=== PATIENT | male | born 1970 | race Caucasian/White ===

== ENCOUNTER 2018-07-05 02:29 | Emergency (ER) | payer OTHER ==
[2018-07-05] MEDS ORDERED: KETOROLAC 30 MG/ML 1 ML VIAL IVP STA (02:37)
[2018-07-05 02:58] LABS: Basophils % (A) 0 %; Eosinophils # (A) 0.2 k/uL (0-0.7); Eosinophils % (A) 2 %; HCT 45.1 % (39.0-53.0); HGB 14.7 gm/dL (13.0-17.5); Lymphocytes # (A) 1.9 k/uL (1.0-4.8); Lymphocytes % (A) 20 %; MCH 28.8 pg (25.0-35.0); MCHC 32.6 g/dL (31.0-37.0); MCV 88.3 fL (80.0-100.0); Monocytes # (A) 0.5 k/uL (0-1.0); Monocytes % (A) 6 %; Neutrophils # (A) 6.6 k/uL (1.3-7.7); Neutrophils % (A) 70 %; Platelet Count 215 k/uL (150-450); RDW 14.3 % (11.5-15.5); WBC 9.4 k/uL (3.8-10.6)
[2018-07-05 03:12] LABS: ALT 43 U/L (21-72); AST 41 U/L (17-59); Albumin 4.6 g/dL (3.5-5.0); Alkaline Phosphatase 108 U/L (38-126); Anion Gap 11 mmol/L; Blood Urea Nitrogen 16 mg/dL (9-20); Calcium 9.3 mg/dL (8.4-10.2); Carbon Dioxide 23 mmol/L (22-30); Chloride 109 mmol/L (98-107); Glucose 93 mg/dL (74-99); Lipase 989 U/L (23-300); Potassium 4.5 mmol/L (3.5-5.1); Sodium 143 mmol/L (137-145); Total Bilirubin 0.3 mg/dL (0.2-1.3); Total Protein 7.8 g/dL (6.3-8.2)
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
--- NOTE | 2018-07-05 04:05 | CT ---
EXAM: CT Abdomen and Pelvis With Intravenous Contrast CLINICAL HISTORY: LLQ pain TECHNIQUE: Axial computed tomography images of the abdomen and pelvis with intravenous contrast. CTDI is 6 mGy and DLP is 602.5 mGy-cm. This CT exam was performed using one or more of the following dose reduction techniques: automated exposure control, adjustment of the mA and/or kV according to patient size, and/or use of iterative reconstruction technique. COMPARISON: No relevant prior studies available. FINDINGS: Lung bases: Scattered ground-glass opacities are noted in the left upper lobe, inferior right upper lobe and right middle lobe. ABDOMEN: Liver: Unremarkable. No mass. Gallbladder and bile ducts: Unremarkable. No calcified stones. No ductal dilation. Pancreas: Unremarkable. No mass. No ductal dilation. Spleen: Unremarkable. No splenomegaly. Adrenals: Unremarkable. No mass. Kidneys and ureters: Unremarkable. No solid mass. No hydronephrosis. Stomach and bowel: No evidence for bowel obstruction. No mucosal thickening. PELVIS: Appendix: No findings to suggest acute appendicitis. Bladder: Unremarkable. No mass. Reproductive: Unremarkable as visualized. ABDOMEN and PELVIS: Intraperitoneal space: Unremarkable. No free air. No significant fluid collection. Bones/joints: Remote posterior right rib fractures are noted. Degenerative changes involving the visualized thoracic and lumbar spine with vacuum phenomenon at multiple levels noted. No dislocation. Soft tissues: Unremarkable. Vasculature: Unremarkable. No abdominal aortic aneurysm. Lymph nodes: Unremarkable. No enlarged lymph nodes. IMPRESSION: 1. Scattered ground-glass opacities are noted in the left upper lobe, inferior right upper lobe and right middle lobe. This may represent atelectasis. Subtle alveolitis is also a consideration. Please correlate clinically. 2. No evidence for bowel obstruction. No focal bowel mucosal abnormality, free intraperitoneal fluid or pneumoperitoneum. No significant diverticulosis.
[2018-07-05 08:56] VITALS: BP 150/102; PULSE 97; RESP 17; TEMP 98.1
== END 2018-07-05 09:23 | disposition home or self-care (01) ==
LOC: EC 02:29
DX: K85.90 Acute pancreatitis without necrosis or infection, unspecified (principal); F10.10 Alcohol abuse, uncomplicated; F17.200 Nicotine dependence, unspecified, uncomplicated; Z90.49 Acquired absence of other specified parts of digestive tract
CPT/HCPCS: 36415; 74177; 80053; 83690; 85025; 96374; 99284

== ENCOUNTER 2020-09-16 | Emergency (ER) | payer OTHER ==
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
== END 2020-09-16 18:06 | disposition home or self-care (01) ==
CPT/HCPCS: 82075; 99284

== ENCOUNTER 2021-03-10 10:18 | Day surgery (SDC) | payer OTHER ==
[2021-03-08 14:05] VITALS: BMI 22.6
[~2021-03-10 10:18] MED LIST: LACTATED RINGERS 1,000 ML IV SCH; LIDOCAINE 1% (10MG/ML) FOR IV START INTRADERMA PRN
[2021-03-10 10:45] VITALS: RESP 16; TEMP 98.2
[2021-03-10] MEDS ORDERED: PROPOFOL 10 MG/ML 20 ML VIAL IV ONE (11:47)
--- NOTE | 2021-03-10 12:06 | P.PCN ---
Date of Procedure: 03/10/21 Procedure(s) Performed: BRIEF HISTORY: Patient is a 50-year-old pleasant white male scheduled for an elective colonoscopy as a part of screening for colorectal neoplasia. PROCEDURE PERFORMED: Colonoscopy with biopsy. PREOPERATIVE DIAGNOSIS: Screening for colon cancer. IV sedation per Anesthesia. PROCEDURE: After informed consent was obtained, the patient, was brought into the endoscopy unit. IV sedation was administered by Anesthesia under continuous monitoring. Digital rectal examination was normal. Initially the Olympus CF-160 flexible video colonoscope was then inserted in the rectum, gradually advanced into the cecum without any difficulty. Careful examination was performed as the scope was gradually being withdrawn. Ileocecal valve and the appendiceal orifice were visualized and appeared normal. Prep was poor and several areas of the colon tic solids that could not be thoroughly washed. The visualized portions of the cecum, ascending colon be normal. In the transverse colon there was a 3- 4 mm polyp that was removed by cold biopsy. Rest of the transverse colon, descending colon, sigmoid colon, and rectum appeared normal. Retroflexion was performed in the rectum and no lesions were seen. The patient tolerated the procedure well. IMPRESSION: 3-4 mm transverse colon polyp status post biopsy Poor prep in several areas of the colon RECOMMENDATIONS: Findings of this examination were discussed with the patient as his family. He was advised to follow with the biopsy results and have a repeat colonoscopy in 5 years.
[2021-03-10 12:19] VITALS: BP 140/97; PULSE 89
== END 2021-03-10 12:48 | disposition home or self-care (01) ==
LOC: ORWHC2ENDO 10:18
PROVIDERS: ATTEND Internal Medicine Gastroenterology
DX: Z12.11 Encounter for screening for malignant neoplasm of colon (principal); K63.5 Polyp of colon; Z98.890 Other specified postprocedural states
CPT/HCPCS: 45380; 88305; J2704

== ENCOUNTER → 2021-03-31 | Outpatient (CLI) | payer OTHER ==
--- NOTE | 2021-04-01 10:02 | CT ---
EXAMINATION TYPE: CT brain wo/w con DATE OF EXAM: 03/31/2021 COMPARISON: CT brain October 29, 2018 HISTORY: HEADACHE, HOMONYMOUS BILATERAL FIELD deficit. CT DLP: 2386 mGycm Automated exposure control for dose reduction was used. CONTRAST: CT scan of the head is performed without and with IV Contrast, patient injected with 100 ML mL of Iso josh 300. FINDINGS: Noncontrast images show no acute intracranial hemorrhage or midline shift. Ventricles and sulci with in normal limits in size for patient's age. Hansno-white matter differentiation maintained. Postcontras t images show no suspicious enhancing masses. The globes are intact and the visualized sinuses are cl ear. Suprasellar cistern is maintained. IMPRESSION: Unremarkable study.
== END | disposition home or self-care (01) ==
LOC: RADCTMAIN 15:29
PROVIDERS: ATTEND Ophthalmology
DX: R51.9 Headache, unspecified (principal); H53.461 Homonymous bilateral field defects, right side; H53.462 Homonymous bilateral field defects, left side
CPT/HCPCS: 70470; Q9967